=== PATIENT | female | born 1980 | race Caucasian/White ===

== ENCOUNTER 2019-08-17 13:26 | Outpatient (CLI) | payer OTHER, SELFPAY ==
--- NOTE | ~2019-08-17 | XR_ITS ---
XR hip RT min 2V Left hip 2 view: 08/17/2019 14:01 Indication: Polyarthralgias. Procedure: 2 views of each hip Comparison: No prior studies for comparison. Findings: No significant joint space narrowing. No erosive changes. There is mild osteitis pubis. No fracture or traumatic malalignment. Pelvic rings appear intact. Sacral foramen are symmetric. Impression: 1: Mild osteitis pubis. Reviewed, dictated and finalized at location A. Impression: 1: Mild osteitis pubis.
--- NOTE | ~2019-08-17 | XR_ITS ---
XR hand RT 2V, XR hand LT 2V 08/17/2019 14:01 Indication: Polyarthralgias Procedure: 2 views of each hand Comparison: No prior studies for comparison. Findings: Normal anatomic alignment. No fracture or traumatic malalignment. No erosive changes. 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 No soft tissue abnormality. 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 Reviewed, dictated and finalized at location A. 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
--- NOTE | ~2019-08-17 | XR_ITS ---
EXAMINATION: XR chest 2V 08/17/2019 14:01 INDICATION: Shortness of breath PROCEDURE: 2 view chest COMPARISON: No prior studies for comparison. FINDINGS: The lungs are clear. The cardiomediastinal silhouette is within normal limits. There are no pleural effusions. There is no pneumothorax suspected. IMPRESSION: 1: NO ACUTE CARDIOPULMONARY DISEASE. Reviewed, dictated and finalized at location A.
--- NOTE | ~2019-08-17 | XR_ITS ---
XR knee RT 3V, XR hip LT min 2V 08/17/2019 14:01 Indication: Polyarthralgias Procedure: 3 views of each knee Comparison: No prior studies for comparison. Findings: No fracture, subluxation or dislocation. No significant joint effusion. No significant join t space narrowing. No erosive changes. No focal soft tissue abnormality. No foreign bodies. Impression: 1: No significant bone or joint abnormality. Reviewed, dictated and finalized at location A. Impression: 1: No significant bone or joint abnormality. Impression: 1: No significant bone or joint abnormality.
--- NOTE | ~2019-08-17 | XR_ITS ---
XR lumbar spine 2-3V 08/17/2019 14:01 Indication: Polyarthralgias Procedure: 3 views lumbar spine Comparison: No prior studies for comparison. Findings: Vertebral body and disc heights are preserved. No acute fracture or traumatic malalignment. No evidence for spondylolisthesis. Pedicles intact. Sacral foramen are symmetric. Impression: 1: No significant abnormality of the lumbar spine. Reviewed, dictated and finalized at location A. Impression: 1: No significant abnormality of the lumbar spine.
--- NOTE | ~2019-08-17 | XR_ITS ---
XR sacroiliac joints min 3V 08/17/2019 14:01 Indication: Polyarthralgias Procedure: 3 views of the sacroiliac joints Comparison: No prior studies for comparison. Findings: There is mild bilateral symmetric degenerative changes of the sacroiliac joints. No fractur e or traumatic malalignment. Sacral foramen are symmetric. Visualized aspects of the pelvic structure s are unremarkable. Impression: 1: Mild symmetric degenerative changes of the sacroiliac joints. Reviewed, dictated and finalized at location A. Impression: 1: Mild symmetric degenerative changes of the sacroiliac joints.
--- NOTE | ~2019-08-17 | XR_ITS ---
XR knee LT 3V 08/17/2019 14:01 INDICATION: Polyarthralgias PROCEDURE: 3 views left knee COMPARISON: FINDINGS: Fracture, dislocation or subluxation is not identified. No joint space narrowing. No joint effusion. The soft tissues appear within normal limits. No foreign bodies are identified. IMPRESSION: 1: NO SIGNIFICANT BONE OR JOINT ABNORMALITY IDENTIFIED. Reviewed, dictated and finalized at location A.
--- NOTE | ~2019-08-17 | XR_ITS ---
XR foot RT 2V, XR foot LT 2V 08/17/2019 14:01 Indication: Polyarthralgias Procedure: 2 views of each foot Comparison: No prior studies for comparison. Findings: There is mild osteoarthritis of the first MTP joints bilaterally. Lisfranc joint intact. No acute fracture or traumatic malalignment. No radiopaque foreign bodies. No focal soft tissue swellin g. Impression: 1: Mild bilateral osteoarthritis of the first MTP joints. Reviewed, dictated and finalized at location A. Impression: 1: Mild bilateral osteoarthritis of the first MTP joints. Impression: 1: Mild bilateral osteoarthritis of the first MTP joints.
== END 2019-08-17 13:27 | disposition home or self-care (01) ==
DX: R06.09 Other forms of dyspnea (principal); M19.072 Primary osteoarthritis, left ankle and foot; M19.071 Primary osteoarthritis, right ankle and foot; M19.042 Primary osteoarthritis, left hand; M19.041 Primary osteoarthritis, right hand
CPT/HCPCS: 71046; 72100; 72202; 73120; 73502; 73562; 73620

== ENCOUNTER 2019-11-25 08:40 | Outpatient (CLI) | payer OTHER, SELFPAY ==
[2019-11-25 09:46] LABS: Cortisol Random 7.84 ug/dL
[2019-11-25 09:47] LABS: Thyroid Stimulating Hormone 0.632 uIU/mL (0.465-4.680)
[2019-11-30 04:30] LABS: FSH 2.5 mIU/mL (***); LH 5.2 mIU/mL (***); Progesterone 7.5 ng/mL (***); Triiodothyronine T3 Free 2.9 pg/mL (2.3-4.2)
[2019-11-30 09:30] LABS: DHEA-Sulfate 200 mcg/dL (19-231)
[2019-12-01 18:36] LABS: Testosterone Free 3.5 pg/mL (0.1-6.4); Testosterone Total 27 ng/dL (2-45)
[2019-12-01 20:53] LABS: Estradiol, Ultrasensitive 219 pg/mL
== END 2019-11-25 08:41 | disposition home or self-care (01) ==
LOC: ANHLAB 08:42
PROVIDERS: PCP Family Medicine; Visit Provider Internal Medicine Endocrinology, Diabetes & Metabolism
DX: N92.6 Irregular menstruation, unspecified (principal); E04.9 Nontoxic goiter, unspecified; R63.5 Abnormal weight gain
CPT/HCPCS: 36415; 82533; 82627; 82670; 83001; 83002; 84144; 84402; 84403; 84439; 84443; 84481

== ENCOUNTER 2019-12-02 08:01 | Outpatient (CLI) | payer OTHER, SELFPAY ==
[2019-12-02 09:36] LABS: Cortisol Random 0.68 ug/dL
== END 2019-12-02 08:02 | disposition home or self-care (01) ==
LOC: ANHLAB 08:03
PROVIDERS: PCP Family Medicine
DX: R63.5 Abnormal weight gain (principal)
CPT/HCPCS: 36415; 82533

== ENCOUNTER 2020-02-14 15:39 | Outpatient (CLI) | payer OTHER, SELFPAY ==
--- NOTE | ~2020-02-14 | MM_ITS ---
EXAMINATION: MM screening joann BI w kristyn HISTORY: Screening mammogram TECHNIQUE: Craniocaudal and mediolateral oblique 3-D tomosynthesis images were obtained and synthetic 2-D images were generated. CAD analysis was submitted and interpreted. COMPARISON: 02/16/2017, 07/09/2015 bilateral digital screening mammogram examinations BREAST PARENCHYMAL COMPOSITION: There are scattered areas of fibroglandular density. FINDINGS: There is no evidence of suspicious mass, calcification, or architectural distortion to sugg est malignancy in either breast. There has been no suspicious interval change. IMPRESSION: 1. No mammographic evidence of malignancy. 2. Recommend routine screening mammography in one year. BI-RADS Category 1: Negative Reviewed, dictated and finalized at location A. [employer]
== END 2020-02-14 15:40 | disposition home or self-care (01) ==
LOC: ANHIMG 15:42
PROVIDERS: PCP Family Medicine; Visit Provider Family Medicine
DX: Z12.31 Encounter for screening mammogram for malignant neoplasm of breast (principal)
CPT/HCPCS: 77063; 77067

== ENCOUNTER 2021-06-08 08:08 | Outpatient (CLI) | payer OTHER, SELFPAY ==
--- NOTE | ~2021-06-08 | MM_ITS ---
EXAMINATION: MM screening joann BI w kristyn HISTORY: Screening mammogram TECHNIQUE: Craniocaudal and mediolateral oblique 3-D tomosynthesis images were obtained and synthetic 2-D images were generated. CAD analysis was submitted and interpreted. COMPARISON: 02/10/2020, 02/16/2017, bilateral screening mammogram examinations BREAST PARENCHYMAL COMPOSITION: There are scattered areas of fibroglandular density. FINDINGS: There is no evidence of suspicious mass, calcification, or architectural distortion to sugg est malignancy in either breast. There has been no suspicious interval change. IMPRESSION: 1. No mammographic evidence of malignancy. 2. Recommend routine screening mammography in one year. BI-RADS Category 1: Negative Reviewed, dictated and finalized at location A.
== END 2021-06-08 08:09 | disposition home or self-care (01) ==
LOC: ANHIMG 08:10
PROVIDERS: PCP Family Medicine; Visit Provider Obstetrics & Gynecology
DX: Z12.31 Encounter for screening mammogram for malignant neoplasm of breast (principal)
CPT/HCPCS: 77063; 77067

== ENCOUNTER 2021-12-11 10:36 | Emergency (ER) | payer OTHER, SELFPAY ==
--- NOTE | ~2021-12-11 | CT_ITS ---
EXAMINATION: CTA chest PE protocol DATE: 12/11/2021 13:23 INDICATION: Chest pain, dyspnea TECHNIQUE: Computed tomography angiography (CTA) of the chest was performed with 100 mL Omnipaque-350 intravenous contrast timed to evaluate the pulmonary arteries. Coronal maximum intensity projection 3D-reconstructions were created by the technologist. Automated exposure control and iterative reconst ruction technique were employed. Exam dose: 560.00 mGy-cm total exam DLP. COMPARISON: 12/11/2021 2 view chest FINDINGS: There is diagnostic contrast enhancement of the pulmonary arteries and no evidence of pulmo nary embolism. Thoracic aortic aneurysm or dissection. No pulmonary consolidation. No pleural or pericardial effusion. No pneumothorax. No hilar or mediastinal mass lesion or lymphadenopathy. Included skeletal structures are unremarkable. IMPRESSION: No evidence of pulmonary embolism Reviewed, dictated and finalized at Location A. Reviewed, dictated and finalized at location B.
--- NOTE | ~2021-12-11 | XR_ITS ---
XR chest 2V DATE: 12/11/2021 11:20 INDICATION: Chest pain radiating to right back TECHNIQUE: PA and lateral views COMPARISON: 08/17/2019 PA and lateral chest FINDINGS: Normal heart size. No hilar or mediastinal enlargement. No pulmonary infiltrate or consolid ation, pleural effusion or pulmonary vascular congestion or pneumothorax. Minimal scoliosis. IMPRESSION: Negative Reviewed, dictated and finalized at location B. IMPRESSION: Negative
[2021-12-11 10:44] VITALS: BP 141/86; PULSE 79; RESP 18; TEMP 36.8; O2SAT 99
--- NOTE | 2021-12-11 10:49 | ECG_ITS ---
Measurements Intervals [place] Rate: 78 P: 33 NM: 156 QRS: 6 QRSD: 101 T: 19 QT: 369 QTc: 420 Interpretive Statements SINUS RHYTHM NORMAL ECG NO PREVIOUS ECG AVAILABLE FOR COMPARISON Electronically Signed On 12-11-2021 12:03:17 CDT by Nate Velazquez D.O.
[2021-12-11 10:50] VITALS: BP 141/86; PULSE 81; RESP 14; O2SAT 97
--- NOTE | 2021-12-11 10:55 | ED.CHESTPAIN ---
HPI - Chest Pain General Chief Complaint: Chest Pain Stated Complaint: difficulty breathing, collapsed last night Time Seen by Provider: 12/11/21 10:38 Source: RN notes reviewed History of Present Illness HPI narrative: Patient presents emergency department from home for chest pain. Patient states symptoms began last night while she was working in the yard she states she was working she had a sudden severe onset of sharp chest pain in her right lower chest and went through into her back pain was so severe that caused her to fall to the ground she states that she did feel some shortness of breath with it mild nausea she states since that time the pain is improved but she continues to have pain in the chest as well as the back in this area she denies any fevers or chills abdominal pain vomiting diarrhea or any other symptoms that she has taken no pain medication Related Data Home Medications Medication Instructions Recorded Confirmed levothyroxine 88 mcg tablet mcg 12/11/21 12/11/21 (Synthroid) lisinopril 10 mg tablet mg 12/11/21 ropinirole 0.25 mg tablet mg 12/11/21 sertraline 50 mg tablet mg 12/11/21 Allergies Allergy/AdvReac Type Severity Reaction Status Date / Time Cephalosporins Allergy Mild Hives / Verified 12/11/21 11:02 Red Face Penicillins Allergy Mild Swelling Verified 12/11/21 11:02 vancomycin Allergy Mild Itching Verified 12/11/21 11:02 codeine Allergy Unknown ITCHING & Verified 12/11/21 11:02 SKIN CRAWLS latex Allergy Rash Verified 12/11/21 11:02 metformin AdvReac Hypertensio Verified 12/11/21 11:02 n Review of Systems Review of Systems: Gen.: Denies fevers or chills ENT: Denies congestion Respiratory: reports shortness of breath CV: Reports chest pain GI: Denies abdominal pain nausea, emesis or diarrhea Musculoskeletal: Denies back pain or muscle pain Neuro: Denies numbness, tingling, weakness or focal weakness Skin: Denies rash Except as documented, all other systems reviewed and negative [facility] Past Medical History Medical History (Updated 12/11/21 @ 14:31 by Chente Javed DO) Hypertension Social History Social History (Updated 12/11/21 @ 10:56 by Chente Javed DO) Smoking status: Never smoker Exam Narrative: APPEARANCE: No acute distress, nontoxic, resting in bed EYES: EOMI HEENT: Normocephalic, atraumatic, OMM RESPIRATORY: No respiratory distress Clear to auscultation bilaterally with no rhonchi wheezing or rales. CARDIOVASCULAR: Regular rate and rhythm without murmurs rubs or gallops. Chest: Tender palpation over the right anterior chest just to the right of the sternum between region of ribs 6 and 8 no sign ecchymosis ABDOMINAL: Soft, nontender, nondistended, no rebound or guarding MUSCULOSKELETAl: Moves all extremities. No clubbing, cyanosis or edema. NEURO: Awake and alert. Following commands, speech normal, no focal deficits SKIN:: Warm, dry. No rashes lesions or abrasions PSYCHIATRIC: Normal affect/mood, Course Course Emergency Course: Patient states pain is improved with medication Discussed with patient results of workup and diagnosis. Discussed need for follow-up with primary care, proper use of medication, and reasons to return to the emergency department. Patient understands and agrees to current treatment plan Vital Signs Vital signs: Vital Signs Temperature 98.3 F 12/11/21 10:44 Pulse Rate 79 12/11/21 10:44 Respiratory Rate 18 12/11/21 10:44 Blood Pressure 141/86 H 12/11/21 10:44 Pulse Oximetry 99 12/11/21 10:44 Oxygen Delivery Room Air 12/11/21 10:44 Temperature 98.3 F 12/11/21 10:44 Pulse Rate 73 12/11/21 14:00 Respiratory Rate 23 H 12/11/21 14:00 Blood Pressure 128/81 12/11/21 14:00 Pulse Oximetry 98 12/11/21 14:00 Oxygen Delivery Room Air 12/11/21 10:44 MDM - Chest Pain MDM Narrative Medical decision making narrative: Patient's EKGs and labs are without significant high risk ch
[2021-12-11 10:59] VITALS: PULSE 79
[2021-12-11] MEDS: KETOROLAC 30 MG/ML VIAL (*BKC) IV PUSH (11:03)
[2021-12-11 11:09] LABS: Basophils Absolute Auto 0.1 K/mm3 (0.0-0.1); Basophils Percent Auto 0.7 % (0.2-1.2); Eosinophils Absolute Auto 0.4 K/mm3 (0-0.3); Hematocrit 39.3 % (37.0-47.0); Hemoglobin 13.1 g/dL (12.0-15.0); Immature Granulocyte Absolute 0.05 K/mm3 (0.00-0.031); Immature Granulocyte Percent A 0.4 % (0-0.5); Lymphocytes Absolute Auto 2.66 K/mm3 (0.9-3.2); Lymphocytes Percent Auto 20.6 % (18.3-44.2); Mean Corpuscular HGB Conc 33.3 g/dl (32-36); Mean Corpuscular Hemoglobin 30.5 pg (26-34); Mean Corpuscular Volume 91.4 fl (80-100); Mean Platelet Volume 9.9 fl (7.4-10.4); Monocytes Absolute Auto 0.8 K/mm3 (0.1-0.6); Neutrophils Absolute Auto 8.9 K/mm3 (1.3-6.7); Neutrophils Percent Auto 69.3 % (45.5-73.1); Platelet Count Result 327 k/mm3 (150-375); Red Cell Distribution Width 13.3 % (11.5-14.5); White Blood Count 12.9 K/mm3 (4.5-10.0)
[2021-12-11 11:20] LABS: Alanine Aminotransferase 32 U/L (6-35); Albumin Level 4.5 g/dL (3.5-5.1); Alkaline Phosphatase 107 U/L (38-126); Anion Gap 11 mmol/L (8-16); Aspartate Amino Transferase 28 U/L (14-36); Bilirubin,Total 0.4 mg/dL (0.2-1.3); Blood Urea Nitrogen 11 mg/dL (7-17); Calcium 9.5 mg/dL (8.4-10.2); Carbon Dioxide 24 mmol/L (22-30); Chloride 104 mmol/L (98-107); Estimated CRCL calculation 94 ml/min; Estimated Glomerular Filt Rate > 60; Glucose 104 mg/dL (65-110); Lipase 34 U/L (23-300); Potassium 4.1 mmol/L (3.4-5.0); Sodium 139 mmol/L (137-145)
[2021-12-11 11:24] LABS: Partial Thromboplastin Time 29.1 SECONDS (22.3-36.8)
[2021-12-11 11:25] LABS: Prothrombin Time 13.2 Seconds (11.1-14.7)
[2021-12-11 11:38] LABS: D Dimer 0.48 ug/mL (<0.48)
[2021-12-11 11:59] LABS: Troponin I < 0.012 ng/mL (0.000-0.034)
[2021-12-11 13:01] VITALS: BP 139/87; PULSE 70; RESP 14; O2SAT 97
[2021-12-11 14:00] VITALS: BP 128/81; PULSE 73; RESP 23; O2SAT 98
[2021-12-11 14:15] LABS: Troponin I < 0.012 ng/mL (0.000-0.034)
== END 2021-12-11 14:58 | disposition home or self-care (01) ==
PROVIDERS: Emergency Provider Emergency Medicine; PCP Family Medicine
DX: R07.89 Other chest pain (principal); I10 Essential (primary) hypertension
CPT/HCPCS: 36415; 71046; 71275; 80053; 83690; 84484; 85025; 85380; 85610; 85730; 93005; 96374; 99284; J1885; Q9967

== ENCOUNTER 2022-09-13 09:17 | Outpatient (CLI) | payer OTHER, SELFPAY ==
--- NOTE | ~2022-09-13 | MM_ITS ---
EXAMINATION: MM screening joann BI w kristyn HISTORY: Screening mammogram TECHNIQUE: Craniocaudal and mediolateral oblique 3-D tomosynthesis images were obtained and synthetic 2-D images were generated. CAD analysis was submitted and interpreted. COMPARISON: 06/08/2021, 02/14/2020 BREAST PARENCHYMAL COMPOSITION:There are scattered areas of fibroglandular density. FINDINGS: No suspicious mass, calcification, or architectural distortion are identified in either roberta ast to suggest malignancy. There has been no suspicious interval change. IMPRESSION: No mammographic evidence of malignancy. Recommend routine screening mammography in one year. BI-RADS Category 1: Negative Reviewed, dictated and finalized at location .
== END 2022-09-13 09:18 | disposition home or self-care (01) ==
LOC: ANHIMG 09:19
PROVIDERS: PCP Family Medicine; Visit Provider Obstetrics & Gynecology
DX: Z12.31 Encounter for screening mammogram for malignant neoplasm of breast (principal)
CPT/HCPCS: 77063; 77067

== ENCOUNTER 2023-03-03 07:59 | Outpatient (CLI) | payer OTHER, SELFPAY ==
[2023-03-03 08:58] LABS: Glucose Fasting 116 mg/dL
[2023-03-03 09:00] LABS: Anion Gap 9 mmol/L (8-16); Blood Urea Nitrogen 17 mg/dL (7-17); Calcium 9.5 mg/dL (8.4-10.2); Carbon Dioxide 26 mmol/L (22-30); Chloride 103 mmol/L (98-107); Estimated Glomerular Filt Rate > 60; Glucose 121 mg/dL (65-110); Potassium 5.1 mmol/L (3.4-5.0); Sodium 138 mmol/L (137-145)
[2023-03-03 09:31] LABS: Cortisol Random 5.35 ug/dL
[2023-03-03 10:45] LABS: Glucose 1 Hour 236 mg/dL
[2023-03-03 11:22] LABS: Glucose 2 Hour 184 mg/dL
[2023-03-03 12:17] LABS: Glucose 3 Hour 117 mg/dL
[2023-03-07 10:38] LABS: Insulin Level Total 19.8 uIU/mL (<=18.4)
== END 2023-03-03 08:00 | disposition home or self-care (01) ==
PROVIDERS: PCP Family Medicine; Visit Provider Family Medicine
DX: R73.03 Prediabetes (principal); R73.9 Hyperglycemia, unspecified
CPT/HCPCS: 36415; 80048; 82533; 82951; 82952; 83525; 84681

== ENCOUNTER 2023-12-25 11:20 | Emergency (ER) | payer OTHER, SELFPAY ==
--- NOTE | ~2023-12-25 | XR_ITS ---
Clinical Indication: Chest pain PA and lateral views of the chest: Comparison: 12/11/2021 Findings: The lungs are clear, without evidence of focal consolidation or pleural effusion. Cardiome diastinal silhouette is within normal limits. Bones and soft tissues are unremarkable. Impression: Normal chest. Reviewed, dictated and finalized at location . Impression: Normal chest.
--- NOTE | ~2023-12-25 | CT_ITS ---
Non-contrast Head CT History: Headache Technique: Axial non-contrast imaging of the brain was performed. Dose reduction technique was used on this scan by utilizing automated exposure control and iterative reconstruction technique. The dose -length product (DLP) was 605.33 mGy-cm. Findings: There is no evidence of intracranial hemorrhage, mass lesion, or acute infarct. Brain par enchyma appears normal. The ventricles and subarachnoid spaces are normal in size. The calvarium ap pears normal. The visualized paranasal sinuses and mastoid air cells are clear. Impression: No significant abnormality seen. Reviewed, dictated and finalized at location . Impression: No significant abnormality seen.
--- NOTE | ~2023-12-25 | CT_ITS ---
Clinical Indication: Shortness of breath, elevated liver enzymes CT Scan of the Chest, Abdomen, and Pelvis with Contrast: Technique: Contiguous sections were acquired throughout the chest, abdomen, and pelvis after intraven ous administration of 100 cc of Omnipaque 350. Dose reduction technique was used on this scan by uti lizing automated exposure control and iterative reconstruction technique. The dose-length product (DL P) was 2102.73 mGy-cm. Comparison: 12/11/2021 Findings: There is no evidence of any significant mediastinal, hilar or axillary lymphadenopathy. The mediastin al soft tissues appear normal. No pulmonary embolus seen. No aortic aneurysm or dissection. There is no evidence of pleural or pericardial effusion. The lungs are clear. No pulmonary nodules or infiltrates are noted. There is diffuse hepatic steatosis. The spleen, pancreas, gallbladder, adrenals and kidneys are withi n normal limits. No evidence of aortic aneurysm. No lymphadenopathy. No bowel obstruction or bowel wall thickening. There is no evidence to suggest acute appendicitis. Urinary bladder is unremarkable. 3 cm fat-containing left adnexal mass is consistent with a dermoid. No other adnexal mass seen. No ascites. Impression: No acute abnormality. No pulmonary embolus. Diffuse hepatic steatosis. 3 cm left adnexal dermoid. Reviewed, dictated and finalized at location . Impression: No acute abnormality. No pulmonary embolus. Diffuse hepatic steatosis. 3 cm left adnexal dermoid.
--- NOTE | 2023-12-25 11:21 | ECG_ITS ---
Test Date: 2023-12-25 11:28:48 Measurements Intervals [place] Rate: 75 P: 38 [place]: 164 QRS: 16 QRSD: 91 T: 32 QT: 368 QTc: 412 Interpretive Statements SINUS RHYTHM No previous ECG available for comparison Electronically Signed On 12-25-2023 11:36:15 CDT by Nathaniel Fortune M.D.
[2023-12-25 11:25] VITALS: BP 154/89; PULSE 78; RESP 16; TEMP 36.1; O2SAT 98
[2023-12-25 11:27] VITALS: BP 152/89; PULSE 80; RESP 15; O2SAT 97
[2023-12-25 11:31] VITALS: BP 151/90; PULSE 79; RESP 19; O2SAT 100
[2023-12-25 11:35] LABS: Basophils Absolute Auto 0.1 K/mm3 (0.0-0.1); Basophils Percent Auto 0.7 % (0.2-1.2); Eosinophils Absolute Auto 0.3 K/mm3 (0-0.3); Eosinophils Percent Auto 2.9 % (0-4.4); Hematocrit 42.9 % (37.0-47.0); Hemoglobin 14.4 g/dL (12.0-15.0); Immature Granulocyte Absolute 0.05 K/mm3 (0.00-0.031); Immature Granulocyte Percent A 0.4 % (0-0.5); Lymphocytes Absolute Auto 2.92 K/mm3 (0.9-3.2); Lymphocytes Percent Auto 26.2 % (18.3-44.2); Mean Corpuscular HGB Conc 33.6 g/dl (32-36); Mean Corpuscular Hemoglobin 30.3 pg (26-34); Mean Corpuscular Volume 90.1 fl (80-100); Mean Platelet Volume 10.2 fl (7.4-10.4); Monocytes Absolute Auto 0.7 K/mm3 (0.1-0.6); Monocytes Percent Auto 6.1 % (2.6-8.5); Neutrophils Absolute Auto 7.1 K/mm3 (1.3-6.7); Neutrophils Percent Auto 63.7 % (45.5-73.1); Platelet Count Result 299 k/mm3 (150-375); Red Blood Count 4.76 M/mm3 (4.2-5.4); Red Cell Distribution Width 12.5 % (11.5-14.5); White Blood Count 11.1 K/mm3 (4.5-10.0)
[2023-12-25 11:45] LABS: Alanine Aminotransferase 76 U/L (6-35); Albumin Level 4.7 g/dL (3.5-5.1); Alkaline Phosphatase 112 U/L (38-126); Anion Gap 8 mmol/L (4-12); Aspartate Amino Transferase 56 U/L (14-36); Bilirubin,Total 0.5 mg/dL (0.2-1.3); Blood Urea Nitrogen 16 mg/dL (7-17); Calcium 9.3 mg/dL (8.4-10.2); Carbon Dioxide 28 mmol/L (22-30); Chloride 102 mmol/L (98-107); Estimated CRCL calculation 96 ml/min; Estimated Glomerular Filt Rate > 60; Glucose 127 mg/dL (65-110); Lipase 37 U/L (23-300); Potassium 3.7 mmol/L (3.4-5.0); Sodium 138 mmol/L (137-145)
[2023-12-25 11:48] LABS: Partial Thromboplastin Time 28.3 Seconds (22.3-36.8); Prothrombin Time 13.4 Seconds (11.1-14.7)
[2023-12-25 11:51] VITALS: BP 125/96; PULSE 71; RESP 14; O2SAT 98
[2023-12-25 11:56] LABS: Troponin I < 0.012 ng/mL (0.000-0.034)
[2023-12-25 12:01] VITALS: BP 124/83; PULSE 76; RESP 14; O2SAT 99
[2023-12-25 12:16] VITALS: BP 144/85; PULSE 77; RESP 18; O2SAT 100
[2023-12-25] MEDS: ASPIRIN 81 MG CHEWABLE TABLET 324 MG PO (12:41)
[2023-12-25 12:46] LABS: BEDSIDEPREGUCG Negative (Negative)
[2023-12-25 12:50] LABS: Add Urine Microscopic? NO; Appearance Urine Clear (Clear); Bilirubin Urine Negative (Negative); Blood Urine Negative (Negative); Color Urine Yellow (Yellow); Glucose Urine UA Negative (Negative); Ketones Urine Negative (Negative); Leukocyte Esterase Ur Negative LEU/UL (Negative); Nitrate Urine Negative (Negative); Protein Urine Negative (Negative); Specific Grav Ur 1.007 (1.001-1.035); Urobilinogen Urine 0.2 mg/dL (<2.0); pH Urine 6.5 (5.0-9.0)
[2023-12-25 12:59] LABS: Uric Acid 5.6 mg/dL (2.5-7.5)
[2023-12-25 13:08] LABS: Hemoglobin A1C 6.4 % (<5.7); NT Pro B Type Natriuretic Pept 50 pg/mL (19.9-100)
[2023-12-25 13:11] LABS: D Dimer < 0.27 ug/mL (<0.48)
[2023-12-25 13:25] LABS: Influenza A QL RT-PCR Negative (Negative); Influenza B QL RT-PCR Negative (Negative); RSV RNA, RT-PCR Negative (Negative); SARS-CoV-2 RNA PCR Negative (Negative)
[2023-12-25 13:37] LABS: Thyroid Stimulating Hormone Reflex 0.354 uIU/mL (0.465-4.68)
--- NOTE | 2023-12-25 14:29 | ECG_ITS ---
Test Date: 2023-12-25 14:35:27 Measurements Intervals [place] Rate: 66 P: 37 [place]: 160 QRS: 24 QRSD: 91 T: 32 QT: 380 QTc: 400 Interpretive Statements SINUS RHYTHM Compared to ECG 12/25/2023 11:28:48 No significant changes Electronically Signed On 12-25-2023 15:10:19 CDT by Nathaniel Fortune M.D.
--- NOTE | 2023-12-25 14:46 | ED.CHESTPAIN ---
HPI - Chest Pain General Chief Complaint: Chest Pain Stated Complaint: HTN- H/A- Chest tightness, sent by PMD Time Seen by Provider: 12/25/23 12:02 History of Present Illness HPI narrative: Patient is a 43-year-old female who presents to the ER with feeling ill , increased blood pressure readings at home, headache, vision changes, increased nausea and increased GERD. She also complains of chest tightness. Patient reports she has no history of diabetes, but has thyroid issues for which she takes Synthroid for. She takes lisinopril for high blood pressure, and has a history of anxiety. Patient also endorses intermittent shortness of breath. She denies other signs or symptoms of illness. Patient reports she has felt so sick recently that she has had to miss work. Related Data Home Medications Medication Instructions Recorded Confirmed levothyroxine 88 mcg tablet mcg 12/11/21 12/11/21 (Synthroid) lisinopril 10 mg tablet mg 12/11/21 ropinirole 0.25 mg tablet mg 12/11/21 sertraline 50 mg tablet mg 12/11/21 Allergies Allergy/AdvReac Type Severity Reaction Status Date / Time Cephalosporins Allergy Mild Hives / Verified 12/25/23 11:45 Red Face Penicillins Allergy Mild Swelling Verified 12/25/23 11:45 vancomycin Allergy Mild Itching Verified 12/25/23 11:45 codeine Allergy Unknown ITCHING & Verified 12/25/23 11:45 SKIN CRAWLS latex Allergy Rash Verified 12/25/23 11:45 metformin AdvReac Hypertensio Verified 12/25/23 11:45 n Review of Systems Review of Systems: All systems reviewed & are unremarkable except as noted in HPI and below PMFSH Past Medical History Medical History Hypertension Social History Social History Smoking status: Never smoker Course Vital Signs Vital signs: Vital Signs Temperature 36.1 C L 12/25/23 11:25 Pulse Rate 78 12/25/23 11:25 Respiratory Rate 16 12/25/23 11:25 Blood Pressure 154/89 H 12/25/23 11:25 Pulse Oximetry 98 12/25/23 11:25 Oxygen Delivery Room Air 12/25/23 11:25 Temperature 36.1 C L 12/25/23 11:25 Pulse Rate 77 12/25/23 12:16 Respiratory Rate 18 12/25/23 12:16 Blood Pressure 144/85 H 12/25/23 12:16 Pulse Oximetry 100 12/25/23 12:16 Oxygen Delivery Room Air 12/25/23 11:42 MDM - Chest Pain MDM Narrative Medical decision making narrative: Patient is a 43-year-old female who presents to the ER with feeling ill , increased blood pressure readings at home, headache, vision changes, increased nausea and increased GERD. She also complains of chest tightness. Patient reports she has no history of diabetes, but has thyroid issues for which she takes Synthroid for. She takes lisinopril for high blood pressure, and has a history of anxiety. Patient also endorses intermittent shortness of breath. She denies other signs or symptoms of illness. Patient reports she has felt so sick recently that she has had to miss work. Patient's CBC indicates a white blood cell count 11.1, which may be due to dehydration or inflammation. Will give patient 1 L normal saline IV bolus. Patient's CMP indicated a glucose of 127, AST of 56, and ALT 76. Patient's head CT showed no abnormalities. Her CT chest, abdomen, pelvis CTA showed No acute abnormality. No pulmonary embolus. Diffuse hepatic steatosis. 3 cm left adnexal dermoid. Patient's TSH was 0.354 and her A1c was 6.4%. It was explained to patient and her that changes would not be made to her medications to treat these abnormalities today, but she should follow-up with her PCP as soon as possible. Patient and her verbalized understanding. Differential Diagnosis Differential diagnosis: Likely atypical chest pain, costochondritis and other (abnormal TSH levels, diabetes, pulmonary embolism) Lab Data Attestation: I reviewed the
[2023-12-25 14:58] LABS: Troponin I 0.012 ng/mL (0.000-0.034)
[2023-12-25 15:12] LABS: Free T4 Free Thyroxine Reflex 1.28 ng/dL (0.78-2.19)
[2023-12-25 15:57] LABS: Total Triiodothyronine (T3) 1.58 NG/ML (0.97-1.69)
== END 2023-12-25 15:22 | disposition home or self-care (01) ==
PROVIDERS: Preventive Medicine Aerospace Medicine; Emergency Provider Registered Nurse; PCP Family Medicine
DX: I10 Essential (primary) hypertension (principal); E11.9 Type 2 diabetes mellitus without complications; E07.9 Disorder of thyroid, unspecified; Z20.822 Contact with and (suspected) exposure to COVID-19; F41.9 Anxiety disorder, unspecified; Z79.899 Other long term (current) drug therapy; K76.0 Fatty (change of) liver, not elsewhere classified; D28.7 Benign neoplasm of other specified female genital organs
CPT/HCPCS: 36415; 70450; 71046; 71275; 74177; 80053; 81003; 81025; 83036; 83690; 83880; 84439; 84443; 84480; 84484; 84550; 85025; 85380; 85610; 85730; 87637; 93005; 99284; A9270; Q9967

== ENCOUNTER 2024-10-06 09:47 | Outpatient (CLI) | payer OTHER, SELFPAY ==
--- NOTE | ~2024-10-06 | MR_ITS ---
EXAMINATION: MR brain/brain stem wo/w con DATE: 10/06/2024 11:10 INDICATION: Trigeminal neuralgia TECHNIQUE: Magnetic resonance imaging (MRI) of the brain and brainstem was performed without and with 18 mL Multihance intravenous contrast. Sequences included sagittal and axial T1-weighted FSE, axial diffusion-weighted FS EPI, axial T2*-weighted GRE, axial T2-weighted FLAIR Propeller, axial T2-weight ed Propeller, coronal thin T2-weighted FS FSE, small [id number] 3D axial CUBE. Postcontrast sequen robin included axial and coronal T1-weighted FSE, small gmnpt-to-wepp axial, sagittal and coronal T1-we ighted ASHLEY. Apparent diffusion coefficient (ADC) maps were created. . COMPARISON: Head CT dated 12/25/2023 FINDINGS: There are no areas of restricted diffusion to suggest acute infarction. No intracranial hemorrhage or abnormal intracranial mass lesion. There are no intraparenchymal signal abnormalities seen on the ot her pulse sequences. The ventricles are symmetric and normal in size. There are no abnormal extra-axi al fluid collections. Flow voids are seen in the cerebral arteries on the T2-weighted sequences along with contrast enhancement consistent with their expected patency. The left vertebral artery is domin ant. 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 1 mm in maximal diameter, tapering to 2.8 mm at the takeoff of the left posterior inferior cerebellar artery, further tapering to 2.1 mm at the junction with the fenestrated basilar artery. At the left cerebral pontine angle there is an indeterminate 5 x 3 mm low signal intensity excrescence arising fr om the medial margin of the left petrous apex which appears calcified on CT dated 12/25/23 which is wi thout abnormal enhancement, potentially a chronically calcified meningioma versus osteoma. This lies along the lateral margin of the left trigeminal nerve. This is best appreciated on the 3-D axial T2 w eighted CUBE sequence. No abnormalities identified in the region of the cavernous sinus or Meckel's c ave on either the left or right. There appears be increased fluid along the bilateral optic nerve she aths which measure up to 6-7 mm on the right and 6 mm on the left, measured 4 mm from the optic disc. The orbits and soft tissues are otherwise unremarkable. There are no areas of abnormal enhancement o n the post contrast images. IMPRESSION: 1. Increased uptake near sheath diameters measuring 6 to 7 mm on the right and 6 mm on the left which can be seen with elevated intracranial pressures. 2. 5 x 3 mm low signal intensity excrescence, calcified on prior CT which arises from the medial gavin in of the left petrous apex and lies along side the left trigeminal nerve. Differential would include small osteoma or calcified meningioma. 2. 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 The latter has been reported as a potential etiology for trigeminal neuralgi a however this along with atelectatic portion of the vertebral artery both occur caudal to the course of the trigeminal nerve. Reviewed, dictated and finalized at location [facility]. IMPRESSION: 1. Increased uptake near sheath diameters measuring 6 to 7 mm on the right and 6 mm on the left which can be seen with elevated intracranial pressures. 2. 5 x 3 mm low signal intensity excrescence, calcified on prior CT which arise s from the medial margin of the left petrous apex and lies along side the left trigeminal nerve. Differential would include small osteoma or calcified meningi manjinder. 2. Likely incidental mild fusiform ectasia of the dominant intracranial left ve rtebral artery and fenestrated basilar artery. The latter has been reported as a potential etiology for trigeminal neuralgia however this along with atelectat ic portion of the vertebral artery both occur caudal to the course of the trige ibeth nerve.
--- NOTE | ~2024-10-06 | MR_ITS ---
MRI of the left foot Clinical history pain, paresthesia, ganglion cyst TECHNIQUE: Axial proton-density and proton-density fat-sat images, sagittal T1-weighted and STIR imag es, and coronal T1-weighted and proton-density fat-sat images were performed. FINDINGS: Bone marrow signals are unremarkable. No osteomyelitis. No fracture or bone marrow edema. J oint spaces are intact. No joint effusion. Flexor and extensor tendons are intact. No evidence for intermetatarsal bursitis or Eisenberg's neuroma. Intrinsic musculature of the foot is unremarkable. There is mild tenosynovitis of the extensor digit orum longus tendon at the region of the marker. No other soft tissue mass or fluid collection seen. IMPRESSION: Tenosynovitis of extensor digitorum longus tendon at the region of the marker at the base of the seco nd and third metatarsals. Reviewed, dictated and finalized at [facility]. IMPRESSION: Tenosynovitis of extensor digitorum longus tendon at the region of the marker a t the base of the second and third metatarsals.
--- OUTSIDE RECORDS SUMMARY | 2024-10-06 09:53 | XMS_ITS | Clinical Summary ---
Author Organization [facility] [address] [facility] Address [address] [place] [id number] Care Team Providers Care Medical Staffing Coordinator Name Role Phone Sharron Ye MD Primary Care Provider Renzo Eason MD Unavailable [phone] Allergies Active Allergy Reactions Criticality Noted Date Comments Cephalexin Hives Medium 08/17/2019 Codeine Other (See comments) Low 08/17/2019 Skin sensitivity/neuralgias Latex Hives Medium 08/17/2019 Penicillin G Anaphylaxis High 08/17/2019 Vancomycin Hives Medium 08/17/2019 Medications rOPINIRole (REQUIP) 0.25 mg tablet 08/02/2019 Active Synthroid 75 mcg tablet 06/14/2019 Active labetaloL (NORMODYNE,TRANDAT E) 200 mg tablet 08/04/2019 Ac tive escitalopram (LEXAPRO) 10 mg tablet 06/14/2019 Active amitriptyline (ELAVIL) 10 mg tablet 07/12/2019 Active Active Problems Problem Noted Date Diagnosed Date Polyarthralgia 08/17/2019 Overview (08/15/2021): 08/09 labs: neg Mandy, neg 14.3.3, elevated Pr:Cr ratio 345, AVISE c1q 61 08/09 xrays: -Lumbar: unremarkable -SI joints: mild symmetric degenerative changes -CXR: no acute cardiopulmonary disease -Bilat knees: unremarkable -Bilat hips: mild osteitis pubis -Bilat hands: 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 Marked synovial thickening in the 2nd and 3rd PIP joints. Grade 1 effusion in the 2nd PIP joint. Grade 1 power doppler in the wrist and radial/scaphoid joint. US right hand/wrist (08/14/21): Mild effusions and power doppler on examination. Marked synovial thickening in the 2nd and 3rd PIP joints. Grade 1 effusion and grade 1 power doppler in the 2nd PIP joint and flexor tendon of the 2nd metacarpal. Grade 1 power doppler in the wrist. Assessment & Plan (08/12/2021 10:47 PM CDT): Returns for additional evaluation of her continued polyarthralgia that occurs in flare ups q2-3 months and lasts 2-3 weeks. During flares she will experience hand swelling. Reports extreme fatigue that reportedly occurs prior to her menstrual cycles. Additionally notes sicca symptoms and rash on left elbow and hx of itchy blisters on her hands. Recent serologies through her PCP office were positive for dsDNA but negative for CRISTOPHER and RF with normal ESR/CRP. Questionable fullness of a few PIP joints on exam with +Brianna's of the left wrist, xeroderma over the left olecranon process and rrp of the rt shoulder girdle and left knee. Discussed use of a left thumb spica splint for De Quervains tendinitis and application of ice to the wrist - if no improvement after 4 weeks of conservative therapy would recommend follow up with a hand orthopedist for potential steroid injection. Suspect palm rash is dishydrotic eczema based on description - would suggest application of hydrocortisone cream and a dermatology follow up for further treatment. Will repeat hand XR and SI joint imaging as well as a right hand/wrist US due to fullness appreciated on physical exam and to rule out an inflammatory arthritis. No concern for SLE at this time with isolated +dsDNA but negative CRISTOPHER on recent testing - both were negative in 2019 and she has no reported symptoms concerning for SLE. Will call with results. Seen with Dr. Eason. Assessment & Plan (09/09/2019 12:01 PM CDT): Ms. Hoyos is a 39yo female with PMH of hypothyroidism, HTN, depression and migraines with a recent +dsDNA and worsening arthralgias over the past year. Reports her hands/R forearm, lower back, knees and ankles are affected at different times and the joints ache and stiffen up with prolonged inactivity. After she wakes up it takes her about 5 minutes before she is able to get out of bed and move around, which improves the stiffness. Also notes symptoms flare up with damp/cold weather. She was taking ibuprofen 800mg q6hrs which reduced the joint pain but had to stop due to elevated BP. 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 Reports dyspnea, intermittent dysphagia with both solids and liquids, questionable rashes on nape of neck and anterior chins/ankles, recurrent nasal and oral ulcers and intermittent swollen glands. Radiographic imaging revealed mild OA of the bilateral 1st MCP and MTP joints of the hands and feet, mild osteitis pubis of the bilateral hips, and mild symmetric degenerative changes to the SI joints. The lumbar spine, bilateral knees and chest xrays were all unremarkable. The right hand/wrist US demonstrated marked synovial thickening in the 2nd and 3rd PIP joints, grade 1 effusion in the 2nd PIP joint and a grade 1 power doppler in the wrist and radial/scaphoid joint. On exam there is questionable synovitis of the peripheral joints with tenderness - soft tissue swelling may be contributing to joint fullness appreciated. Questionable pitting of the 2nd and 3rd nailbeds of the left hand. No trigger points appreciated. At this time there does not appear to be an inflammatory arthritis occurring. Will have patient follow up in 6 months or sooner if symptoms persist/worsen or she develops new symptoms. Seen with Dr. Eason. Assessment & Plan (08/17/2019 12:04 PM CDT): Ms. Hoyos is a 39yo female with PMH of hypothyroidism, HTN, depression and migraines who presents with a recent +dsDNA and worsening arthralgias over the past year. Reports her hands/R forearm, lower back, knees and ankles are affected at different times and the joints ache and stiffen up with prolonged inactivity. After she wakes up it takes her about 5 minutes before she is able to get out of bed and move around, which improves the stiffness. Also notes symptoms flare up with damp/cold weather. She was taking ibuprofen 800mg q6hrs which reduced the joint pain but had to stop due to elevated BP. 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 Reports dyspnea, intermittent dysphagia with both solids and liquids, questionable rashes on nape of neck and anterior chins/ankles, recurrent nasal and oral ulcers and intermittent swollen glands. On exam there is some synovitis of the peripheral joints with tenderness. No trigger points appreciated, however there is ttp of the R>L greater trochanters without pain on IR/ER of the bilateral hips. Symptoms suspicious for a connective tissue disease - although less likely due to prior negative CRISTOPHER. Will perform appropriate radiographs, serologies, and right hand US to assess the etiology of symptoms. Return in [address] Eason. Dyspnea 08/17/2019 Assessment & Plan (09/09/2019 12:01 PM CDT): Reports intermittent dyspnea with chest tightness/burning sensation. Recent chest xray was negative. No adventitious breath sounds auscultated on exam. May consider PFTs and ECHO if symptoms persist. Assessment & Plan (08/17/2019 11:34 AM CDT): Reports intermittent dyspnea with chest tightness/burning sensation. No adventitious breath sounds auscultated on exam. Will obtain chest xray for further evaluation. Social History Tobacco Use Types Packs/Day Years Used Date Smoking Tobacco: Never Assessed Comments Unknown Sex and Gender Information Value Date Recorded Sex Assigned at Not on file Legal Sex Female 9:52 AM CDT Gender Identity Not on file Sexual Orientation Not on file Obstetrics History Last Filed Vital Signs Vital Sign Reading Time Taken Comments Blood Pressure 118/80 08/09/2021 3:29 PM CDT Pulse 100 08/09/2021 3:29 PM CDT Temperature 36.7 C (98.1 F) 09/09/2019 10:28 AM CDT Respiratory Rate - - Oxygen Saturation 97% 08/09/2021 3:29 PM CDT Inhaled Oxygen Concentration - - Weight 87.1 kg (192 lb) 08/09/2021 3:29 PM CDT Height 161.3 cm (5' 3.5) 09/09/2019 10:28 AM CD T Body Mass Index 33.48 09/09/2019 10:28 AM CDT Plan of Treatment Not on file [facility] [employer] OPEN ACCESS Care Teams Medical Staffing Coordinator Relationship Specialty Start Date End Date Sharron Ye MD [address] [place] [address] PCP - General Family Medicine 08/09/19 Renzo Eason MD [address] [place] [address] Consulting Physician Rheumatology 08/09/19
--- OUTSIDE RECORDS SUMMARY | 2024-10-06 09:53 | XMS_ITS | Referral Summary ---
Author Organization [facility] [address] [facility] Address [address] [place] [id number] Care Team Providers Care Accounts Receivable Representative Name Role Phone Sharron Ye MD Primary Care Provider Renzo Eason MD Unavailable [phone] Allergies Active Allergy Reactions Criticality Noted Date [...] on file Sexual Orientation Not on file Last Filed Vital Signs Vital Sign Reading [...] Plan of Treatment Not on file [facility] [employer] [facility] Care Teams Accounts Receivable Representative Relationship Specialty Start Date End Date Sharron Ye MD [address] [place] [address] PCP - General Family Medicine 08/09/19 Renzo Eason MD [address] [facility] [place] [address] Consulting Physician Rheumatology 08/09/19
--- OUTSIDE RECORDS SUMMARY | 2024-10-06 09:53 | XMS_ITS | Clinical Summary ---
Author Organization [facility] Care Team Providers Care Cushion Mat Maker Name Role Phone Unavailable Primary Care Provider Unavailabl e Social History Tobacco Use Types Packs/Day Years Used Date Smoking Tobacco: Never Assessed Comments Unknown Sex and Gender Information Value Date Recorded Sex Assigned at Not on file Legal Sex Female 5:40 PM CDT Gender Identity Not on file Sexual Orientation Not on file Plan of Treatment Not on file
== END 2024-10-06 09:48 | disposition home or self-care (01) ==
PROVIDERS: PCP Family Medicine; Visit Provider Family Medicine
DX: G50.0 Trigeminal neuralgia (principal); M79.672 Pain in left foot; M67.40 Ganglion, unspecified site; R20.2 Paresthesia of skin; M65.972 Unspecified synovitis and tenosynovitis, left ankle and foot
CPT/HCPCS: 70553; 73718; A9577